=== PATIENT | female | born 1960 | race American Indian/Alaskan Native ===

== ENCOUNTER 2021-02-05 02:19 | Emergency (ER) | payer SELFPAY ==
[2021-02-05 02:42] VITALS: BP 147/62
--- NOTE | 2021-02-05 03:01 | Emergency Department Report ---
- General Chief complaint: Weakness Stated complaint: WEAKNESS Time Seen by Provider: 02/05/21 02:46 Source: patient Mode of arrival: Ambulatory Limitations: No Limitations - History of Present Illness Initial comments: Chief complaint: I just feel bad HPI: 68-year-old female with history of thyroid disease and venous insufficiency who presents with generalized weakness shortness of breath. She has had subjective fever chills. She denies cough. She denies loss of taste or smell. She has received vaccines against COVID-19. She recently moved from [facility]. She ultimately desired evaluation and treatment by [facility]. She has chronic swelling in her feet and ankles. She receives cortisone injections from [facility]. She has been unable to obtain health care with [id number]. She denies chest pain. She has mild shortness of breath. MD Complaint: generalized weakness -: Gradual, days(s) (1 day) Location: generalized Severity: mild Consistency: constant Improves with: none Worsens with: none Associated Symptoms: other (Chronic ankle feet swelling) - Related Data Allergies Allergy/AdvReac Type Severity Reaction Status Date / Time No Known Allergies Allergy Verified 02/05/21 02:42 ED Review of Systems ROS: Stated complaint: WEAKNESS Other details as noted in HPI Comment: All other systems reviewed and negative Constitutional: malaise. denies: chills, fever Respiratory: shortness of breath. denies: cough Cardiovascular: denies: chest pain Skin: denies: rash, lesions Neurological: denies: headache ED Past Medical Hx - Past Medical History Previous Medical History?: Yes Additional medical history: thyroid disease - Surgical History Past Surgical History?: Yes Additional Surgical History: x2 foot surgery x2 - Social History Smoking Status: Never Smoker Substance Use Type: None ED Physical Exam - General Limitations: No Limitations General appearance: alert, in no apparent distress, other (Nontoxic no distress appears comfortable) - Head Head exam: Present: atraumatic, normocephalic - Eye Eye exam: Present: normal appearance - ENT ENT exam: Present: mucous membranes moist - Neck Neck exam: Present: normal inspection, full ROM - Respiratory Respiratory exam: Present: normal lung sounds bilaterally. Absent: respiratory distress - Cardiovascular Cardiovascular Exam: Present: regular rate, normal rhythm. Absent: systolic murmur, diastolic murmur, rubs, gallop - GI/Abdominal GI/Abdominal exam: Present: soft, normal bowel sounds - Extremities Exam Extremities exam: Present: pedal edema, other ( present in both ankles) - Back Exam Back exam: Present: normal inspection - Neurological Exam Neurological exam: Present: alert, oriented X3 - Psychiatric Psychiatric exam: Present: normal affect, normal mood - Skin Skin exam: Present: warm, dry, intact, normal color. Absent: rash ED Course Vital Signs 02/05/21 02:41 Temperature 97.5 F L Pulse Rate 71 Respiratory 18 Rate Blood Pressure 147/62 [Right] O2 Sat by Pulse 98 Oximetry ED Medical Decision Making - Medical Decision Making 1. Constitutional symptoms possible viral syndrome suspected COVID-19 recommend outpatient testing stable vital signs 2. Chronic venous insufficiency: Patient desired to sleep in the treatment room overnight. She is currently staying at a hotel. I informed her that sleeping in her bed is an appropriate considering she does not have a life-threatening emergency. She asked for heating pad and ice pack. Asked the nurse provide to ice packs for her chronic leg swelling. I provided referral to primary care physician [facility]. She states that these providers will likely not take [id number]. Critical care attestation.: If time is entered above; I have spent that time in minutes in the direct care of this critically ill patient, excluding procedure time. ED Disposition Clinical Impression: Viral syndrome, Venous insufficiency Disposition: HOME / SELF CARE / HOMELESS Is pt being admited?: No Does the pt Need Aspirin: No Condition: Stable Instructions: Chronic Venous Insufficiency, Viral Illness, Adult Referrals: PAIGE OROPEZA MD [Staff Physician] - 3-5 Days EUGENIE DRAKE DPM [Staff Physician] - 3-5 Days
== END 2021-02-05 03:40 | disposition home or self-care (01) ==
LOC: ED 02:19
DX: B34.9 Viral infection, unspecified (principal); I87.2 Venous insufficiency (chronic) (peripheral); Z98.890 Other specified postprocedural states
CPT/HCPCS: 99283